=== PATIENT | female | born 1940 | race African-American/Black ===

== ENCOUNTER 2020-08-14 16:28 | Emergency (ER) | payer BC, MEDICARE ==
[~2020-08-14] VITALS: Ht 167.6 cm; Wt 72.6 kg
--- NOTE | 2020-08-14 16:50 | Emergency Room Report ---
History of Present Illness General Chief Complaint: Edema Source: Patient Present Illness HPI Patient is a 79-year-old female presents for increased right-sided wrist pain. Reports having no recent trauma. Patient has some history of chronic pain and is currently in pain management. She states she takes hydrocodone regularly. She has been reporting increased discomfort to the area near the right thumb. W orse with movement. Reports of increased swelling. Patient states she was recently diagnosed with gout. 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 COVID-19 Screening: Negative COVID-19 COVID-19 Testing Source: one month ago Patient History Past Medical History: see triage record Reviewed Nursing Documentation: PMH: Agreed; PSxH: Agreed Nursing Documentation-PMH Past Medical History: No History, Except For Hx Hypertension: Yes Hx Diabetes: No Review of Systems All Other Systems: negative except mentioned in HPI Physical Exam Vital Signs Date Time Temp Pulse Resp B/P (MAP) Pulse Ox O2 Delivery O2 Flow Rate FiO2 08/14/20 16:34 98.6 96 18 162/86 (111) 97 Room Air Sp02 EP Interpretation: reviewed, normal General Appearance: alert, Chronically Ill Head: atraumatic ENT: normal ENT inspection, hearing grossly normal, normal voice Neck: normal inspection, full range of motion, supple, no bony tend Respiratory: normal inspection, lungs clear, normal breath sounds, no respiratory distress, no retraction, no wheezing Cardiovascular #1: regular rate, rhythm Gastrointestinal: normal inspection, soft, no guarding, no hernia Genitourinary: no CVA tenderness Musculoskeletal: normal inspection, back normal, normal range of motion Neurologic: alert, motor strength/tone normal, 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 Differential diagnosis include was not limited to arthritis, gout, rheumatoid disease, among others. Extremity was ordered to patient's complaint of pain. Appears to have some joint swelling to the wrist. She reports having recent diagnosis of gout. Patient was given topical anti-inflammatory medications. She is placed in Max wrap with some improvement in discomfort. Patient was advised to follow-up with her primary care physician for recheck. She was advised to return if she had any worsening of condition or other concerns. She advised to remove the wrap if she began having swelling or discomfort to her fingers. This medical record is generated with [employer] director group sales software. There may be some director group sales discrepancies related to use of this software Last Vital Signs Date Time Temp Pulse Resp B/P (MAP) Pulse Ox O2 Delivery O2 Flow Rate FiO2 08/14/20 16:34 98.6 96 18 162/86 (111) 97 Room Air Status: improved Disposition: HOME, SELF-CARE Condition: Stable Scripts Diclofenac Sodium (VOLTAREN) 100 Gm Gel..gram. 5 GM TP EVERY 12 HOURS, #100 GM Prov: Wm Herron MD 08/14/20 Wm Herron MD Aug 14, 2020 16:50
[2020-08-14] MEDS ORDERED: Diclofenac 1% Gel 100gm TOPIC ONE (17:00)
[2020-08-14 17:05] VITALS: BP 162/86
[2020-08-14] MEDS ORDERED: VOLTAREN100 G1 TP (17:51)
[2020-08-14 18:00] VITALS: BP 162/86
--- NOTE | 2020-08-14 20:33 | Diagnostic Imaging Report ---
EXAM: XR Right Wrist Complete, 3 or More Views CLINICAL HISTORY: PAIN TECHNIQUE: Frontal, lateral and oblique views of the right wrist. COMPARISON: None FINDINGS: Bones/joints: There is no acute fracture or dislocation. Severe also arthritic changes are seen at the first carpometacarpal joint. Soft tissues: Unremarkable. No radiopaque foreign body. Other findings: There is calcification of the triangular fibrocartilage. IMPRESSION: No acute fracture.
== END 2020-08-14 18:13 | disposition home or self-care (01) ==
LOC: EMR 17:12
DX: M19.90 Unspecified osteoarthritis, unspecified site (principal); M10.9 Gout, unspecified; I10 Essential (primary) hypertension; Z88.0 Allergy status to penicillin; Z79.899 Other long term (current) drug therapy
CPT/HCPCS: 99283